=== PATIENT | male | born 1980 | race Caucasian/White ===

== ENCOUNTER 2019-01-11 12:28 | Emergency (ER) | payer BC ==
[~2019-01-11] VITALS: Ht 172.7 cm; Wt 96.6 kg
[2019-01-11 12:44] VITALS: BP 119/81
[2019-01-11] MEDS ORDERED: LIDOcaine 1% 30ml preserv. free vial SQ STA (14:15)
[2019-01-11] MEDS ORDERED: TETanus/Pertussis (Acell)/Diphther VAC/PF (Tdap-Adult) 0.5ml syringe IMVAC ONE (15:50)
[2019-01-11] MEDS ORDERED: CEPH-572 PO ×2 (16:17→16:21)
== END 2019-01-11 16:14 | disposition home or self-care (01) ==
LOC: ER 12:29
DX: S61.011A Laceration without foreign body of right thumb without damage to nail, initial encounter (principal); W26.8XXA Contact with other sharp object(s), not elsewhere classified, initial encounter; Y93.89 Activity, other specified; Y92.89 Other specified places as the place of occurrence of the external cause; Y99.8 Other external cause status
CPT/HCPCS: 12001; 90471; 90715; 99283; J3490